=== PATIENT | male | born 2000 | race Caucasian/White ===

== ENCOUNTER 2019-04-25 11:43 | Emergency (ER) | payer SELFPAY ==
[2019-04-25 11:56] VITALS: BP 122/69; PULSE 86; RESP 16; TEMP 37.1; O2SAT 98
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
[2019-04-25] MEDS: Ondansetron O.D.T. 4 MG TABEF PO (12:27)
[2019-04-25] MEDS: Acetaminophen 325 MG TAB 650 MG PO (12:27)
[2019-04-25] MEDS: Ondansetron O.D.T. 4 MG TABEF, 3 TABS/BTL PO (13:15)
[2019-04-25 13:22] VITALS: BP 114/90; PULSE 70; RESP 16; O2SAT 98
== END 2019-04-25 13:22 | disposition home or self-care (01) ==
LOC: ER 13:25
PROVIDERS: Emergency Provider Physician Assistant
DX: S09.90XA Unspecified injury of head, initial encounter (principal); F07.81 Postconcussional syndrome; W22.8XXA Striking against or struck by other objects, initial encounter
CPT/HCPCS: 99283

== ENCOUNTER 2019-06-16 19:33 | Emergency (ER) | payer MEDICAID, SELFPAY ==
[2019-06-16 19:33] VITALS: BP 128/69; PULSE 89; RESP 16; TEMP 37; O2SAT 99
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
[2019-06-16] MEDS: Acetaminophen 500 MG TAB 1000 MG PO (20:08)
[2019-06-16] MEDS: Ibuprofen 800 MG TAB PO (20:09)
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
[2019-06-16 21:17] VITALS: BP 116/67; PULSE 85; RESP 16; TEMP 36.7; O2SAT 97
--- NOTE | 2019-06-16 21:18 | NUR.NOTE ---
Provided with sandwich and javi kimberlyn. Plan for DC home.
--- NOTE | 2019-06-16 21:25 | NUR.NOTE ---
Discharge instructions reviewed with verbal understanding. aware to f/u with pcp as needed. ambulated to exit with steady gait.
--- NOTE | 2019-06-17 07:40 | NUR.NOTE ---
Copy of referral to establish care in [employer] [facility].Nursing Note:
== END 2019-06-16 21:25 | disposition home or self-care (01) ==
PROVIDERS: Emergency Provider Student in an Organized Health Care Education/Training Program
DX: S06.0X0A Concussion without loss of consciousness, initial encounter (principal); V03.10XA Pedestrian on foot injured in collision with car, pick-up truck or van in traffic accident, initial encounter
CPT/HCPCS: 99284; 70450; 72125

== ENCOUNTER 2020-10-09 08:17 | Outpatient (CLI) | payer OTHER, SELFPAY ==
[2020-10-10 18:03] LABS: COVID-19 RT-PCR UVMMC Result Negative (Negative)
== END 2020-10-09 08:18 | disposition home or self-care (01) ==
PROVIDERS: PCP Nurse Practitioner Family; Visit Provider Nurse Practitioner Family
DX: Z20.822 Contact with and (suspected) exposure to COVID-19 (principal)
CPT/HCPCS: U0003